=== PATIENT | male | born 1995 | race Caucasian/White ===

== ENCOUNTER → 2017-05-01 | Outpatient (CLI) | payer BC ==
--- NOTE | 2017-05-01 13:12 | XR ---
EXAMINATION TYPE: XR chest 2V DATE OF EXAM: 05/01/2017 COMPARISON: NONE HISTORY: Chest and sternal pain. TECHNIQUE: Frontal and lateral views of the chest are obtained. FINDINGS: There is no focal air space opacity, pleural effusion, or pneumothorax seen. The cardiac silhouette size is within normal limits. Note is made of left-sided arch, cardiac apex, and stomach b ubble. Slight pectus deformity noted. The osseous structures are intact. IMPRESSION: Slight pectus excavatum deformity otherwise unremarkable study.
== END | disposition home or self-care (01) ==
LOC: RADXRMAIN 12:31
PROVIDERS: ATTEND Internal Medicine
DX: Q67.6 Pectus excavatum (principal); M95.4 Acquired deformity of chest and rib; R07.89 Other chest pain
CPT/HCPCS: 71020

== ENCOUNTER → 2017-05-17 | Outpatient (CLI) | payer BC ==
--- NOTE | 2017-05-17 16:10 | CT ---
EXAMINATION TYPE: CT chest wo con DATE OF EXAM: 05/17/2017 COMPARISON: NONE HISTORY: Complains of sternal pain CT DLP: 553.9 mGycm. Automated Exposure Control for Dose Reduction was Utilized. TECHNIQUE: CT scan of the thorax is performed without IV contrast. High resolution protocol with 10 mm sequences obtained in supine and prone technique. FINDINGS: LUNGS: The lungs are grossly clear, there is no concerning parenchymal mass identified. No suspicious groundglass opacity or consolidation is seen. No suspicious reticulation or fibrosis is identified. There is no pleural effusion or pneumothorax seen. No bronchiectasis is noted. MEDIASTINUM: Lack of IV contrast and technique is noted to limit evaluation for mediastinal and espec ially hilar adenopathy. There are no definitive greater than 1 cm hilar or mediastinal lymph nodes. No cardiomegaly or pericardial effusion is seen. OTHER: No additional significant abnormality is seen. IMPRESSION: No significant acute or chronic pulmonary process.
== END | disposition home or self-care (01) ==
LOC: RADCTMAIN 15:43
PROVIDERS: ATTEND Internal Medicine
DX: R07.9 Chest pain, unspecified (principal)
CPT/HCPCS: 71250